=== PATIENT | male | born 1955 | race Caucasian/White ===

== ENCOUNTER 2024-06-18 04:30 | Inpatient (IN) | payer OTHER ==
--- OUTSIDE RECORDS SUMMARY | 2024-06-18 04:34 | XMS REPORT | Continuity of Care Document ---
Author Name Unknown Address [address] [facility] [address] [place] [address] [facility] thconnect Address [address] 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 Role Phone SALINA ROBBINS Primary Care Physician Unavailab INGRIS [place] Attending Clinician Unavailable EDDI ZAMUDIO Attending Clinician Unavailable EDDI ZAMUDIO Attending Clinician Unavailable Doctor Unassigned, [place] Attending Clinician U harshalsyed Robbins [place] Attending Clinician [phone] Ingris Murray MD Attending Clinician [phone] Eddi Zamudio PA-C Attending Clinician [phone] LLUVIA GUTIÉRREZ Attending Clinician LLUVIA Chris Attending Clinician Unavailstephy May RN, Mike Sung Attending Clinician Unavail able ESAU LEIVA Attending Clinician Unavailable Janna CEDENO, Tata Attending Clinician [phone] Ingris Murray MD Attending Clinician [phone] NIGRIS MURRAY Admitting Clinician Unavailable ESAU LEIVA Admitting Clinician Unavailable Payers Payer Name Policy Type Policy Number Effective Date Expirati on Date Source [facility]/[employer] MEDICARE ADVANTAGE [id number] 2023 00:00:00 Problems Condition Name Condition Details Condition Category Status Onset Date Resolution Date Last Treatment Date Treating Clinician Comments Source Preoperati ve cardiovasc ular examinatio n Preoperati ve cardiovasc ular examinatio n Disease Active 8-13 00:00: 00 [facility] Appendicit is Appendicit is Disease Active 5-16 00:00: 00 [facility] Atheroscle 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[place]nee heart, unspecifie d whether angina present Atheroscle 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 heart, unspecifie d whether angina present Disease Active 12-29 00:00: 00 [facility] Presence of drug coated stent in LAD coronary artery Presence of drug coated stent in LAD coronary artery Disease Active 12-29 00:00: 00 [facility] Primary hypertensi on Primary hypertensi on Disease Active 12-29 00:00: 00 [facility] Hypotensio n due to drugs Hypotensio n due to drugs Disease Active 12-29 00:00: 00 [facility] Mixed hyperlipid emia Mixed hyperlipid emia Disease Active 12-29 00:00: 00 [facility] Allergies, Adverse Reactions, Alerts Allergy Name Allergy Type Status Severity Reaction(s) Onset Date Inactive Date Treating Clinician Comments Source Dobutami ne Drug Intolera nce Active Other - See comments 12-29 00:00: 00 States during dobutamin e stress test medicatio n caused terrible headache. Requested to be listed as an intoleran ce, not true allergy [facility] DOBUTAMI NE DRUG INGREDI Active Med Other-Cmnt 12-29 00:00: 00 [facility] NO KNOWN ALLERGIE S Drug Class Active [facility] Social History Social Habit Start Date Stop Date Quantity Comments Source History of tobacco use Passive smoker [facility] of Social function 2024-05-14 00:00:00 2024-05-14 00:00:00 [facility] Tobacco use and exposure 2023-12-30 00:00:00 2023-12-30 00:00:00 Smokeless tobacco non-user [facility] Sex assigned at 1955 00:00:00 1955 00:00:00 [facility] Smoking Status Start Date Stop Date Source Never smoked tobacco [facility] Medications Ordered Medication Name Filled Medication Name Start Date Stop Date Current Medication? Ordering Clinician Indication Dosage Frequency Signature (SIG) Comments Components Source diclofenac 75 mg EC tablet 05-14 00:00: 00 Yes [id number] 75mg Take 1 tablet by mouth in the morning and 1 tablet in the evening. Take with meals. [facility] empaglifloz in 10 mg tablet 05-07 00:00: 00 08-06 05:59 :00 Yes 10mg Take 1 tablet by mouth. [facility] metFORMIN 1,000 mg tablet 04-30 00:00: 00 10-28 05:59 :00 Yes 1000mg Take 1 tablet by mouth. [facility] Magnesium 250 mg Tab 02-17 19:48: 31 Yes 800mg Take 800 mg by mouth in the morning. [facility] RYBELSUS 7 mg Tab 02-17 19:48: 31 Yes 1{tbl} Take 1 tablet by mouth in the morning. [facility] aspirin 81 mg Cap 02-17 19:48: 31 Yes 81mg Take 81 mg by mouth in the morning. [facility] acetaminoph en 500 mg tablet 02-17 19:48: 31 Yes 500mg Take 1 tablet by mouth every 8 (eight) hours as needed for Pain (arthritis ). [facility] ferrous sulfate (IRON) 325 mg (65 mg iron) tablet 02-17 19:48: 31 Yes 325mg Take 1 tablet by mouth in the morning. [facility] Multivitami ns-Minerals -Lutein (MULTIVITAM IN 50 PLUS) Tab 02-17 19:48: 31 Yes 1{tbl} Take 1 tablet by mouth in the morning and 1 tablet in the evening. [facility] NAPROXEN ORAL 02-17 19:48: 31 Yes 220mg Take 220 mg by mouth as needed for Pain (scale 4-6) (used for arthritis, foot pain, neck pain, leg cramps). [facility] terbinafine HCL 250 mg tablet 02-17 19:48: 31 05-18 00:00 :00 No 250mg Take 1 tablet by mouth in the morning. [facility] amoxicillin -clavulanat e 875-125 mg per tablet 02-17 00:00: 00 02-26 04:59 :00 No [id number] 1{tbl} Take 1 tablet by mouth every 12 (twelve) hours for 8 days. [facility] pantoprazol e (PROTONIX) EC tablet 40 mg 02-16 14:00: 00 Yes 40mg 40 mg, Oral, DAILY, First dose on Tue02/17/24 at 0900, Until Discontinu ed, Routine, Indication for use: None of the above [facility] aspirin chewable tablet 81 mg 02-16 14:00: 00 Yes 81mg 81 mg, Oral, DAILY, First dose on Tue02/17/24 at 0900, Until Discontinu ed [facility] amoxicillin -clavulanat e (AUGMENTIN) 875-125 mg per tablet 1 tablet 02-16 13:00: 00 02-26 12:59 :00 No 1{tbl} 1 tablet, Oral, Q12H, 20 doses, First dose on Tue02/17/24 at 0800, Last dose on Tue02/26/24 at 2000, Routine, Reason for Anti-Infec tive: Documented Infection, Documented Infection Site: Abdominal, Duration of Therapy: 10 days [facility] lactated ringers IV infusion 1,000 mL 02-16 13:00: 00 02-16 15:19 :43 No 1000mL at 42 mL/hr, 1,000 mL, IV Infusion, CONTINUOUS , Starting on Tue02/17/24 at 0800, Until Tue02/17/24 at 1019, Routine [facility] atorvastati n (LIPITOR) tablet 80 mg 02-16 02:00: 00 Yes 80mg 80 mg, Oral, QHS, First dose on Tue02/16/24 at 2100, Until Discontinu ed, Routine [facility] budesonide- formoteroL (SYMBICORT) 160-4.5 mcg/actuati on inhaler 2 Puff 02-16 01:00: 00 Yes 2{puff} 2 Puff, Inhalation , BID, First dose on Tue02/16/24 at 2000, Until Discontinu ed, Routine [facility] enoxaparin (LOVENOX) injection 40 mg 02-15 22:00: 00 Yes 40mg 40 mg, Subcutaneo us, DAILY, First dose on Tue02/16/24 at 1700, Until Discontinu ed, Routine [facility] carvediloL (COREG) tablet 3.125 mg 02-15 22:00: 00 Yes 3.125mg 3.125 mg, Oral, BID MEALS, First dose on Tue02/16/24 at 1700, Until Discontinu ed, Routine [facility] iopamidol (ISOVUE 370-500 mL) injection 100 mL 02-15 21:30: 00 02-15 21:27 :00 No [id number] 100mL 100 mL, Intravenou s, ONCE, 1 dose, On Tue02/16/24 at 1630, Routine [facility] acetaminoph en (TYLENOL) tablet 1,000 mg 02-15 19:00: 00 Yes 1000mg 1,000 mg, Oral, Q8H, First dose on Tue02/16/24 at 1400, Until Discontinu ed, [facility]ers [facility] 1,000 mL 02-15 17:15: 00 02-16 12:45 :25 No 1000mL at 100 mL/hr, 1,000 mL, IV Infusion, CONTINUOUS , Starting on Tue02/16/24 at 1215, Until Tue02/17/24 at 0745, Routine [facility] Sliding Scale Insulin - Lispro (HumaLOG) 02-15 17:00: 00 Yes Subcutaneo us, TID MEALS+HS, First dose on Tue02/16/24 at 1200, Until Discontinu ed, Routine [facility] glucagon (GLUCAGEN DIAGNOSTIC KIT) injection 1 mg 02-15 16:05: 01 Yes 1mg 1 mg, Intramuscu lar, PRN, Starting on Tue02/16/24 at 1105, Until Discontinu ed, POLI, Blood Glucose < or = 70 mg/dL and patient is NPO, unable to swallow or has mental changes. [facility] dextrose 50 % in water (D50W) injection 25 mL 02-15 16:05: 01 Yes 25mL 25 mL, Slow IV Push, PRN, Starting on Tue02/16/24 at 1105, Until Discontinu ed, POLI, Blood Glucose < or = 70 mg/dL and patient is NPO, unable to swallow or has mental status changes. [facility] morpHINE (2 mg/mL) injection 2 mg 02-15 15:29: 11 Yes 2mg [facility] traMADoL (ULTRAM) tablet 50 mg 02-15 15:28: 59 Yes 50mg [facility] ondansetron (ZOFRAN (PF)) injection 4 mg 02-15 15:28: 23 Yes 4mg [facility] albuterol (PROVENTIL) 2.5 mg /3 mL (0.083 %) nebulizer solution 2.5 mg 02-15 15:25: 29 Yes 2.5mg [facility] clopidogreL 75 mg tablet 12-29 11:34: 17 12-29 00:00 :00 No 75mg Take 1 tablet by mouth in the morning. [facility] ferrous sulfate (IRON) 325 mg (65 mg iron) tablet 12-29 10:49: 15 Yes 325mg Take 1 tablet by mouth in the morning. [facility] Multivitami ns-Minerals -Lutein (MULTIVITAM IN 50 PLUS) Tab 12-29 10:49: 15 Yes 1{tbl} Take 1 tablet by mouth in the morning and 1 tablet in the evening. [facility] cholecalcif gabby, vitamin D3, (D3-5000 ORAL) 12-29 10:49: 15 Yes 5000[iU ] Take 5,000 Int'l Units by mouth in the morning. [facility] NAPROXEN ORAL 12-29 10:49: 15 Yes 220mg Take 220 mg by mouth as needed for Pain (scale 4-6) (used for arthritis, foot pain, neck pain, leg cramps). [facility] Magnesium 250 mg Tab 12-29 10:49: 15 Yes 800mg Take 800 mg by mouth in the morning. [facility] RYBELSUS 7 mg Tab 12-29 10:49: 15 Yes 1{tbl} Take 1 tablet by mouth in the morning. [facility] terbinafine HCL 250 mg tablet 12-29 10:49: 15 Yes 250mg Take 1 tablet by mouth in the morning. [facility] aspirin 81 mg Cap 12-29 10:49: 15 Yes 81mg Take 81 mg by mouth in the morning. [facility] acetaminoph en 500 mg tablet 12-29 10:49: 15 Yes 500mg Take 1 tablet by mouth every 8 (eight) hours as needed for Pain (arthritis ). [facility] carvediloL 3.125 mg tablet 12-29 00:00: 00 12-30 04:59 :00 No [id number] 3.125mg Take 1 tablet by mouth in the morning and 1 tablet in the evening. Take with meals. [facility] predniSONE 10 mg tablet 12-28 00:00: 00 Yes 10mg Take 1 tablet by mouth as needed for Other (used for sob exacerbati on). [facility] SYMBICORT 160-4.5 mcg/actuati on inhaler 12-28 00:00: 00 Yes 2{puff} Inhale 2 Puffs in the morning and 2 Puffs in the evening. [facility] atorvastati n 80 mg tablet 12-26 00:00: 00 06-25 04:59 :00 No 80mg Take 1 tablet by mouth at bedtime. [facility] ketoconazol e 2 % cream 12-14 00:00: 00 Yes Apply to area(s) daily. [facility] ketoconazol e 2 % shampoo 12-14 00:00: 00 02-13 04:59 :00 No Apply to area(s). [facility] ezetimibe 10 mg tablet 11-29 00:00: 00 01-28 04:59 :00 No 10mg Take 1 tablet by mouth in the morning. [facility] albuterol 2.5 mg /3 mL (0.083 %) nebulizer solution 2022-10 00:00: 00 Yes 2.5mg Inhale 3 mL every 6 (six) hours as needed for Shortness of Breath or Wheezing. [facility] metFORMIN 1,000 mg tablet 2022-10 00:00: 00 02-05 04:59 :00 No 1000mg Take 1 tablet by mouth in the morning and 1 tablet in the evening. Take with meals. [facility] carvediloL 12.5 mg tablet 2022-10 00:00: 00 12-29 00:00 :00 No 12.5mg Take 1 tablet by mouth in the morning and 1 tablet in the evening. Take with meals. [facility] isosorbide mononitrate 30 mg 24 hr tablet 01-31 00:00: 00 Yes 30mg Take 1 tablet by mouth in the morning. [facility] Vital Signs Vital Name Observation Time Observation Value Comments Patricia champagne Systolic blood pressure 2024-05-15 15:03:00 106 mm[Hg] [facility] Diastolic blood pressure 2024-05-15 15:03:00 58 mm[Hg] [facility] Heart rate 2024-05-15 15:03:00 74 /min [facility] Respiratory rate 2024-05-15 15:03:00 16 /min [facility] Body height 2024-05-15 15:03:00 175.3 cm [facility] Body weight 2024-05-15 15:03:00 85.475 kg [facility] BMI 2024-05-15 15:03:00 27.83 kg/m2 [facility] Oxygen saturation in Arterial blood by Pulse oximetry 2024-05-15 15:03:00 94 /min [facility] Body height 2024-05-14 13:35:00 175.3 cm [facility] Body weight 2024-05-14 13:35:00 86.274 kg [facility] BMI 2024-05-14 13:35:00 28.09 kg/m2 [facility] Systolic blood pressure 2024-02-18 20:55:00 132 mm[Hg] [facility] Diastolic blood pressure 2024-02-18 20:55:00 72 mm[Hg] [facility] Heart rate 2024-02-18 20:55:00 63 /min [facility] Body temperature 2024-02-18 20:55:00 36.67 Nyla [facility] Respiratory rate 2024-02-18 20:55:00 18 /min [facility] Oxygen saturation in Arterial blood by Pulse oximetry 2024-02-18 20:55:00 96 /min [facility] Body weight 2024-02-16 12:00:00 92 kg [facility] BMI 2024-02-16 12:00:00 29.95 kg/m2 [facility] Systolic blood pressure 2023-12-30 15:51:00 81 mm[Hg] [facility] Diastolic blood pressure 2023-12-30 15:51:00 48 mm[Hg] [facility] Heart rate 2023-12-30 15:51:00 64 /min [facility] Body height 2023-12-30 15:51:00 175.3 cm stated [facility] Body weight 2023-12-30 15:51:00 91.808 kg [facility] BMI 2023-12-30 15:51:00 29.89 kg/m2 [facility] Oxygen saturation in Arterial blood by Pulse oximetry 2023-12-30 15:51:00 96 /min [facility] Procedures Procedure Date / Time Performed Performing Clinician Source TRANSTHORACIC ECHO (TTE) COMPLETE 2024-05-17 15:30:00 Ingris Murray [facility] POCT GLUCOSE (AUTOMATED) 2024-02-18 20:57:00 Fr Abbie [facility] POCT GLUCOSE (AUTOMATED) 2024-02-18 13:37:00 Fr Abbie [facility] BASIC METABOLIC PANEL (NA, K, CL, CO2, GLUCOSE, BUN, CREATININE, CA) 2024-02-18 10:35:00 Aubrey Browning [facility] CBC WITH DIFF 2024-02-18 10:35:00 Mari Browning [facility] POCT GLUCOSE (AUTOMATED) 2024-02-18 01:28:00 Fr Abbie [facility] POCT GLUCOSE (AUTOMATED) 2024-02-17 23:15:00 Fr Abbie [facility] POCT GLUCOSE (AUTOMATED) 2024-02-17 19:14:00 Fr Abbie [facility] PHOSPHORUS 2024-02-17 09:39:00 Mari Browning [facility] MAGNESIUM 2024-02-17 09:39:00 Mari Browning [facility] BASIC METABOLIC PANEL (NA, K, CL, CO2, GLUCOSE, BUN, CREATININE, CA) 2024-02-17 09:39:00 Aubrey Browning [facility] CBC WITH DIFF 2024-02-17 09:39:00 Mari Browning [facility] POCT GLUCOSE (AUTOMATED) 2024-02-17 01:46:00 Pineda Saldivar [facility] POCT GLUCOSE (AUTOMATED) 2024-02-16 21:44:00 Pineda Saldivar [facility] CT ABDOMEN PELVIS W CONTRAST 2024-02-16 21:30:00 Crystal [facility] PHOSPHORUS 2024-02-16 17:22:[facility]24-02-16 17:22:00 [facility] HEPATIC FUNCTION PANEL (17832) (ALB,T.PRO,BILI T,BU/BC,ALT,AST,ALK PHOS) 2024-02-16 17:22:[facility] (NA, K, CL, CO2, GLUCOSE, BUN, CREATININE, CA) 2024-02-16 17:22:00 [facility] CBC WITH DIFF 2024-02-16 17:22:00 Crystal [facility] PROTHROMBIN TIME / INR 2024-02-16 17:22:00 [facility] ACTIVATED PARTIAL THRMPLAS MARCO ANTONIO 2024-02-16 17:22:00 Jagdish [facility] FIBRINOGEN 2024-02-16 17:22:00 Jagdish [facility] HEPATITIS B SURFACE ANTIBODY 2024-02-16 17:22:00 [facility] HEPATITIS B SURFACE ANTIGEN 2024-02-16 17:22:00 [facility]TIBODY 2024-02-16 17:22:00 [facility] HEPATITIS B CORE ANTIBODY IGM 2024-02-16 17:22:00 [facility] Encounters Start Date/Time End Date/Time Encounter Type Admission Type Attending [facility] Care Facility Care Department Encounter ID Source 2024-06-14 08:00:00 2024-06-14 08:00:00 Outpatient EDDI GUTIERRES SELENA [facility] [id number] [facility] 2024-05-08 00:00:00 2024-06-09 18:20:42 Patient Secure Msg Doctor Unassigned, [place] Doctor Unassigned, [place] [facility] 1.2.840.114 350.1.13.10 4.2.7.2.686 [id number] [facility] 2024-05-10 00:00:00 2024-05-30 10:57:28 Letter (Out) Salina Robbins [facility] 1.2.840.114 350.1.13.10 4.2.7.2.686 [id number] [facility] 2024-05-18 00:00:00 2024-05-18 09:53:52 Telephone Trevor [facility]ESSIO NAL BUILDING 1.2.840.114 350.1.13.10 4.2.7.2.686 [id number] [facility] 2024-05-17 09:51:06 2024-05-17 23:59:00 Outpatient R TREVOR [facility] [id number] [facility] 2024-05-17 09:51:06 2024-05-17 23:59:00 [facility] 1.2.840.114 350.1.13.10 4.2.7.2.686 [id number] [facility] 2024-05-15 09:30:00 2024-05-15 11:01:25 Outpatient R TREVOR [facility] [id number] [facility] 2024-05-15 09:30:00 2024-05-15 11:01:25 Office Visit Trevor [facility] BUILDING 1.2.840.114 350.1.13.10 4.2.7.2.686 [id number] [facility] 2024-05-14 08:30:00 2024-05-14 10:31:33 Outpatient R EDDI ZAMUDIO [facility]LE[facility] [id number] [facility] 2024-05-14 08:30:00 2024-05-14 10:31:33 Office Visit Eddi Zamudio [facility] 1..840.114 350.1.13.10 4.2.7.2.686 [id number] [facility] 2024-04-16 15:30:00 2024-04-16 15:30:00 Outpatient LLUVIA COLEMAN CRAIG [facility] [id number] [facility] 2024-03-30 08:00:00 2024-03-30 08:00:00 [facility] [id number] [facility] 2024-03-02 09:00:00 2024-03-02 09:00:00 Outpatient Dami [facility] [id number] [facility] 2024-02-20 00:00:00 2024-02-21 11:39:56 Transition of Care Mike May 1..840.114 350.1.13.10 4.2.7.2.686 [id number] [facility] 2024-02-16 07:13:00 2024-02-18 18:45:00 Outpatient ESAU BAXTER VTSELINA PURDY [id number] [facility] 2024-02-16 07:13:00 2024-02-18 18:45:00 Hospital Encounter Tata Saldivar [facility] 1..840.114 350.1.13.10 4.2.7.2.686 [id number] [facility] 2024-01-19 08:00:00 2024-01-19 08:00:00 Outpatient R MURRAYINGRIS [facility] [id number] [facility] 2024-01-03 00:00:00 2024-01-03 00:00:00 Telephone Ingris Murray [facility] 1.2.840.114 350.1.13.10 4.2.7.2.686 [id number] [facility] 2023-12-30 11:00:00 2023-12-30 11:39:34 Office Visit Ingris Murray [facility] 1.2.840.114 350.1.13.10 4.2.7.2.686 [id number] [facility] 2023-12-30 11:00:00 2023-12-30 11:39:34 [facility] [id number] [facility] Results Test Description Test Time Test Comments Results Result Co mments Source [facility] GLUCOSE (AUTOMATED)2024-02-18 21:04:20* Test Item Value Reference Range Interpretation Comme [facility] POCT GLU (test code = 8108546200) 230 mg/dL 70-110 H Lab Interpretation (test cod e = 80330-0) Abnormal [facility] GLUCOSE (AUTOMATED)2024-02-18 13:38:14* Test Item Value Reference Range Interpretation Comme [facility] POCT GLU (test code = 5205805362) 125 mg/dL 70-110 H Lab Interpretation (test cod e = 79873-6) Abnormal [facility] [id number] 11:27:57* Test Item Value Reference Range Interpretation Comme nts WBC (test code = 6690-2) 7.11 4.20-10.70 RBC (test code = 789-8) 4.72 4.26-5.52 HGB (test code = 718-7) 14.9 g/dL 12.2-16.4 HCT (test code = 4544-3) 41.1 % 38.4-49.3 MCV (test code = 787-2) 87.1 fL 81.7-95.6 MCH (test code = 785-6) 31.6 pg 26.1-32.7 MCHC (test code = 786-4) 36.3 g/dL 31.2-35.0 H RDW-SD (test code = 04430-8) 42.6 fL 38.5-51.6 RDW-CV (test code = 788-0) 13.5 % 12.1-15.4 PLT (test code = 777-3) 123 150-328 L MPV (test code = 46129-1) 11.1 fL 9.8-13.0 IPF % (test code = 0637323201) 4.6 % 1.2-10.7 Platelet count measured by fluorescence method. NRBC/100 WBC (test code = 7935279220) 0.0 0.0-10.0 NRBC x10^3 (test code = 7518477844) See_Comment [Automated Histogena ge] The system which generated this result transmitted reference range: 10*3/?L. The reference range was not used to interpret this result as normal/abnormal. GRAN MAT (NEUT) % (test code = 770-8) 63.9 % IMM GRAN % (test code = 7077607658) 0.30 % LYMPH % (test code = 736-9) 19.8 % MONO % (test code = 5905-5) 10.7 % EOS % (test code = 713-8) 4.6 % BASO % (test code = 706-2) 0.7 % GRAN MAT x10^3(ANC) (test code = 5007917173) 4.54 10*3/uL 1.99-6.95 IMM GRAN x10^3 (test code = 5579420901) 0.00-0.06 LYMPH x10^3 (test code = 731-0) 1.41 10*3/uL 1.09-3.23 MONO x10^3 (test code = 742-7) 0.76 10*3/uL 0.36-1.02 EOS x10^3 (test code = 711-2) 0.33 10*3/uL 0.06-0.53 BASO x10^3 (test code = 704-7) 0.05 10*3/uL 0.01-0.09 Lab Interpretation (test code = 76674-1) Abnormal [facility] Metabolic Panel (NA, K, CL, CO2, GLUCOSE, BUN, CREATININE, CA)2024-02-18 11:24:54* Test Item Value Reference Range Interpretation Comme nts NA (test code = 5518526314) 137 mmol/L 135-145 K (test code = 2827307968) 4.3 mmol/L 3.5-5.0 Slight hemolysis CL (test code = 3243120179) 107 mmol/L 98-108 CO2 TOTAL (test code = 6752344095) 22 mmol/L 23-31 L AGAP (test code = 7814244828) 8 2-16 BUN (test code = 5582503260) 10 mg/dL 7-23 Slight hemolysis GLUCOSE (test code = 6585155359) 128 mg/dL 70-110 H CREATININE (test code = 2160-0) 0.58 mg/dL 0.60-1.25 L CALCIUM (test code = 0890909113) 9.5 mg/dL 8.6-10.6 eGFR (test code = 35016-5) 107.6 mL/min/1.73m2 CKD-EPI eGFR (2020). Assuming creatinine has been stable day-to-day for at least three months, the eGFR indicates Category G1 (>= 90 mL/min/1.73 m2) Lab Interpretation (test code = 61110-7) Abnormal [facility] GLUCOSE (AUTOMATED)2024-02-18 01:31:02* Test Item Value Reference Range Interpretation Comme nts POCT GLU (test code = 3531872933) 222 mg/dL 70-110 H Lab Interpretation (test cod e = 89949-9) Abnormal [facility] GLUCOSE (AUTOMATED)2024-02-17 23:16:43* Test Item Value Reference Range Interpretation Comme nts POCT GLU (test code = 3291566389) 224 mg/dL 70-110 H Lab Interpretation (test cod e = 93842-7) Abnormal [facility] GLUCOSE (AUTOMATED)2024-02-17 19:15:59* Test Item Value Reference Range Interpretation Comme nts POCT GLU (test code = 8689918040) 92 mg/dL 70-110 Lab Interpretation (test cod e = 36376-7) Normal [facility] with [id number] 10:46:03* Test Item Value Reference Range Interpretation Comme nts WBC (test code = 6690-2) 6.94 4.20-10.70 RBC (test code = 789-8) 4.58 4.26-5.52 HGB (test code = 718-7) 13.9 g/dL 12.2-16.4 HCT (test code = 4544-3) 41.0 % 38.4-49.3 MCV (test code = 787-2) 89.5 fL 81.7-95.6 MCH (test code = 785-6) 30.3 pg 26.1-32.7 MCHC (test code = 786-4) 33.9 g/dL 31.2-35.0 RDW-SD (test code = 44192-6) 44.7 fL 38.5-51.6 RDW-CV (test code = 788-0) 13.7 % 12.1-15.4 PLT (test code = 777-3) 106 150-328 L MPV (test code = 79147-2) 10.5 fL 9.8-13.0 IPF % (test code = 8738484760) 2.8 % 1.2-10.7 Platelet count measured by fluorescence method. NRBC/100 WBC (test code = 0986385324) 0.0 0.0-10.0 NRBC x10^3 (test code = 2905418907) See_Comment [Automated Histogena ge] The system which generated this result transmitted reference range: 10*3/?L. The reference range was not used to interpret this result as normal/abnormal. GRAN MAT (NEUT) % (test code = 770-8) 58.2 % IMM GRAN % (test code = 1324004983) 0.30 % LYMPH % (test code = 736-9) 24.1 % MONO % (test code = 5905-5) 11.5 % EOS % (test code = 713-8) 5.0 % BASO % (test code = 706-2) 0.9 % GRAN MAT x10^3(ANC) (test code = 1372437804) 4.04 10*3/uL 1.99-6.95 IMM GRAN x10^3 (test code = 3016228762) 0.00-0.06 LYMPH x10^3 (test code = 731-0) 1.67 10*3/uL 1.09-3.23 MONO x10^3 (test code = 742-7) 0.80 10*3/uL 0.36-1.02 EOS x10^3 (test code = 711-2) 0.35 10*3/uL 0.06-0.53 BASO x10^3 (test code = 704-7) 0.06 10*3/uL 0.01-0.09 Lab Interpretation (test code = 82358-7) [facility] (NA, K, CL, CO2, GLUCOSE, BUN, CREATININE, CA)2024-02-17 10:36:30* Test Item Value Reference Range Interpretation Comme nts NA (test code = 4428646430) 136 mmol/L 135-145 K (test code = 8219023462) 3.8 mmol/L 3.5-5.0 CL (test code = 4830887612) 108 mmol/L 98-108 CO2 TOTAL (test code = 0801135144) 25 mmol/L 23-31 AGAP (test code = 5159338780) 3 2-16 BUN (test code = 5572269218) 12 mg/dL 7-23 GLUCOSE (test code = 0792125685) 98 mg/dL 70-110 CREATININE (test code = 2160-0) 0.64 mg/dL 0.60-1.25 CALCIUM (test code = 6470761330) 9.2 mg/dL 8.6-10.6 eGFR (test code = 81650-4) 104.4 mL/min/1.73m2 CKD-EPI eGFR (20 21). Assuming creatinine has been stable day-to-day for at least three months, the eGFR indicates Category G1 (>= 90 mL/min/1.73 m2) [facility] 10:36:30* Test Item Value Reference Range Interpretation Comme nts MAGNESIUM (test code = 9567048704) 2.1 mg/dL 1.7-2.4 Lab Interpretation (test cod e = 30015-7) Normal [facility]24-[facility] 10:36:30* Test Item Value Reference Range Interpretation Comme nts PHOSPHORUS (test code = 6747710454) 3.1 mg/dL 2.5-5.0 Lab Interpretation (test cod e = 34769-3) Normal [facility] ABDOMEN PELVIS W [id number] 03:16:56Ordering physician: ESAU LEIVA Indication: Acute generalized abdominal pain COMPARISON: None TECHNIQUE: Axial images of the abdomen and pelvis are performed followingadministration of intravenous contrast material. Images were reformatted inthe coronal and sagittal plane. CT scan was performed according to ALARA(as low as reasonably achievable) policy. FINDINGS: There is peripheral honeycombing and traction bronchiectasis inthe lung bases. The heart is enlarged, with prominent coronaryarteriosclerosis. There is irregularity of the liver contour. The spleen isenlarged, at 17 cm in long axis. 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 The gallbladder, adrenalglands and pancreas are within normal limits. The kidneys are normal inappearance bilaterally without hydronephrosis. No abdominal aortic aneurysmor dissection is appreciated. There is no free fluid in the pelvis. There is no bowel obstruction,widespread diverticulosis or acute diverticulitis. The appendix isdistended, measuring up to 13 mm in diameter. There are mild inflammatorychanges in the adjacent fat (series 301, image 77-84). No appendicealperforation or periappendiceal abscess is appreciated. Bone windows throughthe abdomen and pelvis demonstrate no osseous destructive lesion. [facility] GLUCOSE (AUTOMATED)2024-02-17 01:47:51* Test Item Value Reference Range Interpretation Comme [facility] POCT GLU (test code = 1042319948) 105 mg/dL 70-110 Notified Provide r Lab Interpretation (test code = 22345-7) Normal [facility] GLUCOSE (AUTOMATED)2024-02-16 21:45:46* Test Item Value Reference Range Interpretation Comme [facility] POCT GLU (test code = 8802873484) 124 mg/dL 70-110 H Lab Interpretation (test cod e = 58836-3) Abnormal [facility] Consult Notes Date/Time Note Provider Source 2024-02-16 12:00:46 Associated Order(s): CONSULT CARDIOLOGY Cardiology Consult Note Date of Service: 02/16/2024 Requesting Service: General surgery Chief Complaint: Acute appendicitis Reason for admission: Acute appendicitis Reason for consult: 68 yo M with cirrhosis, CAD s/p PCI and stents in 2013, and IPF. Pt with acute appendicitis. Please eval perioperative cardiac risk and for preop cardiac optimization History of Present Illness: Rod Singletary is a 68 year old male with PMHx of CAD s/p PCIx2 LAD 2016/2017 (self reported), HTN|HLD, NIDDM, lung fibrosis who presents with abdominal pain, found to have appendicitis. Cardiology consult for pre-op. Patient reports he is doing well from a cardiac standpoint. He is compliant with his medications and is currently only on aspirin for antiplatelet as advised by his qa intern. He was recently seen by his qa intern, Dr. Murray in December 2023 and was doing well then. Patient reports he is active, climbs stairs, etc without CP. Denies CP, palpitations, lightheadedness, swelling. ROS: 12 points ROS were obtained and negative except mentioned in HPI. No past medical history on file. No past surgical history on file. No family history on file. Social History Socioeconomic History Marital status: Single Tobacco Use Smoking status: Never Passive exposure: Current Smokeless tobacco: Never Social Determinants of Health Financial Resource Strain: Low Risk (02/16/2024) Overall Financial Resource Strain (CARDIA) Difficulty of Paying Living Expenses: Not hard at all Food Insecurity: No Food Insecurity (02/16/2024) Hunger Vital Sign Worried About Running Out of Food in the Last Year: Never true Ran Out of Food in the Last Year: Never true Transportation Needs: No Transportation Needs (02/16/2024) PRAPARE - Transportation Lack of Transportation (Medical): No Lack of Transportation (Non-Medical): No Physical Activity: Inactive (02/16/2024) Exercise Vital Sign Days of Exercise per Week: 0 days Minutes of Exercise per Session: 0 min Social Connections: Unknown (02/16/2024) Social Connection and Isolation Panel [NHANES] Frequency of Communication with Friends and Family: More than three times a week Housing Stability: Low Risk (02/16/2024) Housing Stability Vital Sign Unable to Pay for Housing in the Last Year: No Number of Places Lived in the Last Year: 1 Unstable Housing in the Last Year: No Allergies Allergen Reactions Dobutamine Other - See comments States during dobutamine stress test medication caused terrible headache. Requested to be listed as an intolerance, not true allergy Prior to Admission medications Medication Sig Start Date End Date Taking? Authorizing Provider acetaminophen 500 mg tablet Take 1 tablet by mouth every 8 (eight) hours as needed for Pain (arthritis). Doctor Unassigned, [place] albuterol 2.5 mg /3 mL (0.083 %) nebulizer solution Inhale 3 mL every 6 (six) hours as needed for Shortness of Breath or Wheezing. 09/16/23 Antonino Hatfield aspirin 81 mg Cap Take 81 mg by mouth in the morning. Doctor Unassigned, [place] atorvastatin 80 mg tablet Take 1 tablet by mouth at bedtime. 12/27/23 06/24/24 Doctor Unassigned, [place] carvediloL 3.125 mg tablet Take 1 tablet by mouth in the morning and 1 tablet in the evening. Take with meals. 12/30/23 12/29/24 Ingris Murray MD cholecalciferol, vitamin D3, (D3-5000 ORAL) Take 5,000 Int'l Units by mouth in the morning. Doctor Unassigned, [place] ferrous sulfate (IRON) 325 mg (65 mg iron) tablet Take 1 tablet by mouth in the morning. Doctor Unassigned, [place] isosorbide mononitrate 30 mg 24 hr tablet Take 1 tablet by mouth in the morning. 01/31/23 Doctor Unassigned, [place] ketoconazole 2 % cream Apply to area(s) daily. 12/15/23 Doctor Unassigned, [place] Magnesium 250 mg Tab Take 800 mg by mouth in the morning. Doctor Unassigned, [place] Sjuqgkjpsljud-[place] (MULTIVITAMIN 50 PLUS) Tab Take 1 tablet by mouth in the morning and 1 tablet in the evening. Doctor Unassigned, [place] NAPROXEN ORAL Take 220 mg by mouth as needed for Pain (scale 4-6) (used for arthritis, foot pain, neck pain, leg cramps). Doctor Unassigned, [place] predniSONE 10 mg tablet Take 1 tablet by mouth as needed for Other (used for sob exacerbation). 12/29/23 Antonino Hatfield RYBELSUS 7 mg Tab Take 1 tablet by mouth in the morning. Salina Robbins SYMBICORT 160-4.5 mcg/actuation inhaler Inhale 2 Puffs in the morning and 2 Puffs in the evening. 12/29/23 Doctor Unassigned, [place] terbinafine HCL 250 mg tablet Take 1 tablet by mouth in the morning. Doctor Unassigned, [place] Current Facility-Administered Medications: acetaminophen (TYLENOL) tablet 1,000 mg, 1,000 mg, Oral, Q8H, Yandel Rojas MD, 1,000 mg at 02/16/24 1456 albuterol (PROVENTIL) 2.5 mg /3 mL (0.083 %) nebulizer solution 2.5 mg, 2.5 mg, Inhalation, Q6HPRN, Yandel Rojas MD [START ON 02/17/2024] aspirin chewable tablet 81 mg, 81 mg, Oral, DAILY, Yandel Rojas MD atorvastatin (LIPITOR) tablet 80 mg, 80 mg, Oral, QHS, Yandel Rojas MD budesonide-formoteroL (SYMBICORT) 160-4.5 mcg/actuation inhaler 2 Puff, 2 Puff, Inhalation, BID, Yandel Rojas MD carvediloL (COREG) tablet 3.125 mg, 3.125 mg, Oral, BID MEALS, Yandel Rojas MD dextrose 50 % in water (D50W) injection 25 mL, 25 mL, Slow IV Push, PRN, Rachel Dubon MD enoxaparin (LOVENOX) injection 40 mg, 40 mg, Subcutaneous, DAILY, Yandel Rojas MD glucagon (GLUCAGEN DIAGNOSTIC KIT) injection 1 mg, 1 mg, Intramuscular, PRN, Rachel Dubon MD lactated ringers IV infusion 1,000 mL, 1,000 mL, IV Infusion, CONTINUOUS, Rachel Dubon MD, Last Rate: 100 mL/hr at 02/16/24 1209, 1,000 mL at 02/16/24 1209 morpHINE (2 mg/mL) injection 2 mg, 2 mg, Slow IV Push, Q4HPRN, Yandel Rojas MD ondansetron (ZOFRAN (PF)) injection 4 mg, 4 mg, Slow IV Push, Q6HPRN, Yandel Rojas MD [START ON 02/17/2024] pantoprazole (PROTONIX) EC tablet 40 mg, 40 mg, Oral, DAILY, Yandel Rojas MD piperacillin-tazobactam (ZOSYN) 3.375 g in NaCl 0.9% (NS) 100 mL VIAL-MATE, 3.375 g, IV Piggyback, Q8H Crystal WALLER Samuel, MD Sliding Scale Insulin - Lispro (HumaLOG), , Subcutaneous, TID MEALS+HS, Rachel Dubon MD traMADoL (ULTRAM) tablet 50 mg, 50 mg, Oral, Q6HPRN, Yandel Rojas MD Physical Examination: Vitals: 02/16/24 1129 BP: 123/71 Pulse: 65 Resp: 18 Temp: 36.5 ?C (97.7 ?F) SpO2: 94% No intake or output data in the 24 hours ending 02/16/24 1502 General: alert and oriented x3, no apparent distress HEENT: pupils equal, round Neck: no JVD Lungs: no crackles Cardio: RRR, S1, S2 normal; no murmurs appreciated Abdomen: soft; non-tender; non-distended; normoactive bowel sounds : not examined Rectal: not examined Extremities: no edema, warm to touch Skin: no rashes Neuro: cranial nerves II through XII grossly intact Labs/Imaging/Pathology - reviewed EKG : 12/2023 Sinus bradycardia Assessment/Plan: Rod Singletary is a 68 year old male admitted with: Pre-op for acute appendicitis CAD s/p PCIx2 LAD 2016/2017 (self reported) HTN|HLD NIDDM lung fibrosis Patient with acute appendicitis, consult for pre-op. Patient denies any active cardiac issues such as CP, palpitations. He is active at baseline, >4 METS. Given this information, does not require any additional assessment or optimization. Recommendations: Intermediate risk, cardiac optimized, no additional testing needed Please continue beta jose and aspirin perioperatively Maintain K >4, Mag >2 Tele F/u outpatient as scheduled Rest of care per primary Thank you for your consult. Cardiology will sign off. Please call with any questions. Seen and discussed with faculty, Dr. Benoit. Shyanne Rivas MD General Cardiovascular Disease, PGY-4 Department of Internal Medicine Associated attestation - Ricardo Benoit MD - 02/16/2024 4:14 PM CDT I reviewed patient's chart, vitals, lab work, current medications and other diagnostic studies. I saw and examined the patient on 02/16/2024 and agree with the detailed note. I actively participated in the decision-making process. Ricardo Benoit MD [employer] Division of Cardiology IM-CARDIOVASCULAR DISEASE [facility] - Health History and Physical Notes Date/Time Note Provider Source 2024-02-16 09:08:05 GENERAL SURGERY History and Physical Date of Service: 02/16/2024 Chief Complaint: abdominal pain HPI Rod Singletary is a 68 year old w/ PMH 68 yo M with cirrhosis, CAD s/p PCI and stents in 2013, and IPF, and DM, with acute appendicitis. Pt denies any hx of cirrhosis or excessive alcohol intake. Appendicitis identified on imaging from OSH as well as cirrhosis noted on outside imaging with unknown etiology. He has not had prior abdominal surgery. CURRENT HOSPITAL MEDICATIONS No current facility-administered medications for this encounter. Review of Systems (-)=Negative,(+)=Positive Constitutional: negative HEENT: negative Cardio: negative Resp: negative GI: (+) abdominal pain : negative SARA: negative Neuro: negative Hem/Lymphatic: negative Allergic/Immunologic: negative HISTORIES No past medical history on file. No past surgical history on file. No family history on file. Social History Socioeconomic History Marital status: Single Tobacco Use Smoking status: Never Passive exposure: Current Smokeless tobacco: Never Social Determinants of Health Financial Resource Strain: Low Risk (02/16/2024) Overall Financial Resource Strain (CARDIA) Difficulty of Paying Living Expenses: Not hard at all Food Insecurity: No Food Insecurity (02/16/2024) Hunger Vital Sign Worried About Running Out of Food in the Last Year: Never true Ran Out of Food in the Last Year: Never true Transportation Needs: No Transportation Needs (02/16/2024) PRAPARE - Transportation Lack of Transportation (Medical): No Lack of Transportation (Non-Medical): No Physical Activity: Inactive (02/16/2024) Exercise Vital Sign Days of Exercise per Week: 0 days Minutes of Exercise per Session: 0 min Social Connections: Unknown (02/16/2024) Social Connection and Isolation Panel [NHANES] Frequency of Communication with Friends and Family: More than three times a week Housing Stability: Low Risk (02/16/2024) Housing Stability Vital Sign Unable to Pay for Housing in the Last Year: No Number of Places Lived in the Last Year: 1 Unstable Housing in the Last Year: No Physical Exam Vitals: There were no vitals filed for this visit. (-)=Negative,(+)=Positive General: alert and oriented x 4 (person, place, date/time, and situation); no apparent distress HEENT: normocephalic atraumatic, extraocular movements intact Respiratory: non labored breaths Cardio: regular rate and rhythm Abdomen: soft, TTP on RLQ Musculoskeletal: Moves all extremities well Skin: no rash Neurologic: no focal deficits Psychiatric: negative ASSESSMENT/PLAN: Rod Singletary is a 68 year old male who presents with acute appendicitis. Due to extensive cardiac hx will require cardiac work up prior to surgery. Additionally, need to consider medical management of appendicitis due to comorbidity of cirrhosis. NPO Resumed Home Meds Sliding scale insulin DVT prophylaxis on Lovenox ID: Zosyn CT abdomen and pelvis w/ Cardiology consulted Tevin Alonso MD Orthopaedic Surgery PGY-1 Associated attestation - Esau Leiva MD - 02/16/2024 3:55 PM CDT Attending I personally examined the patient on 02/16/24 and agree with the Resident note by Dr. Alonso as written. I actively participated in the decision-making process. Please see the note for additional details. The history and physical exam and medical decision making was directed by me. Briefly, 68 year old w/ PMH 68 yo M with cirrhosis, CAD s/p PCI and stents in 2013, and IPF, and DM, with acute appendicitis. PROBLEMS: Acute appendicitis complicated by cirrhosis, pulmonary fibrosis, CAD, DM Review and interpretation of tests New tests ordered Moderate (M) risk indicated by Other extenuating risks including possible need for surgery (minor)(M) History of/underlying No past medical history on file. PLAN: Repeat CT A/P as outside CD not available CBC, BMP, LFT, PT/PTT Outside CT suggests significant hepatic cirrhosis Exam benign CPT: 61657 Esau Leiva MD Trauma/Acute Care Surgery Faculty ORT-ORTHOPAEDIC SURGERY [facility] Notes Date/Time Note Provider Source 2024-05-18 09:43:12 Images from the original note were not included. Results and recommendations shared, verbalized understanding, transferred to PSS to schedule 6mth appt Ingris Murray MD P Cardiology Nurse Echo showed normal cardiac muscle and valvular function. The ascending aorta however is moderately dilated at 4.2 cm. Recommend follow up imaging (with CT chest angiogram) in 6 months. Orders are placed. Office follow up after 6 months. Kathleen Best RN [facility] 2024-05-15 09:30:00 Addended by: INGRIS KNOTT on: 05/18/2024 08:01 AM Modules accepted: Orders [facility] 2024-02-21 11:38:55 TRANSITIONAL CARE MANAGEMENT ASSESSMENT 02/21/2024 Rod Singletary [id number] Rod Singletary is a 68 year old /White male was admitted on 02/16/[address] He was discharged on 02/18/24 with discharge disposition of HR- Routine Discharge. Admitting Physician: Esau Leiva Discharge Diagnosis: PRIMARY DIAGNOSIS: appendicitis FINAL DIAGNOSIS: same No linked episodes TCM [id number] outreach documentation: CM made follow up call to patient post-discharge. No answer and call went to voicemail. CM left a discreet message with purpose of call and CM's call back information. Two attempts made to reach patient. Discharge Assessment Chart Assessed: 02/21/24 TCM Outreach Completed: 02/21/24 Future Appointments: Future Appointments Provider Department Dept Phone 03/02/2024 9:00 AM 2, [phone] 03/30/2024 8:00 AM Ingris Murray MD [facility] [phone] Mike May RN [facility] 2024-02-20 16:42:54 CM made follow up call to patient post-discharge. No answer and call went to voicemail. CM left a discreet message with purpose of call and CM's call back information. [facility] 2024-02-18 14:58:51 Problem: Pain Goal: Control of pain at or below patient's documented comfort goal Outcome: Adequate for discharge Goal: Reduction in pain sensation Outcome: Adequate for discharge Problem: Discharge Planning Goal: Adequate for discharge Outcome: Adequate for discharge Goal: Effective communication Outcome: Adequate for discharge DIE Krishnamurthy RN [facility] 2024-02-18 02:38:00 Problem: Pain Goal: Control of pain at or below patient's documented comfort goal Outcome: Progressing as expected Goal: Reduction in pain sensation Outcome: Progressing as expected Problem: Discharge Planning Goal: Adequate for discharge Outcome: Progressing as expected Goal: Effective communication Outcome: Progressing as expected T Jahaira Menard RN [facility] 2024-02-17 13:53:32 Problem: Pain Goal: Control of pain at or below patient's documented comfort goal Outcome: Progressing as expected Goal: Reduction in pain sensation Outcome: Progressing as expected Problem: Discharge Planning Goal: Adequate for discharge Outcome: Progressing as expected Goal: Effective communication Outcome: Progressing as expected DIE [facility] 2024-02-17 01:18:16 Problem: Pain Goal: Control of pain at or below patient's documented comfort goal Outcome: Progressing as expected Goal: Reduction in pain sensation Outcome: Progressing as expected Problem: Discharge Planning Goal: Adequate for discharge Outcome: Progressing as expected Goal: Effective communication Outcome: Progressing as expected [facility] 2024-02-16 11:24:40 Problem: Pain Goal: Control of pain at or below patient's documented comfort goal Outcome: Progressing as expected Goal: Reduction in pain sensation Outcome: Progressing as expected Problem: Discharge Planning Goal: Adequate for discharge Outcome: Progressing as expected Goal: Effective communication Outcome: Progressing as expected [facility] 2024-01-03 15:44:48 Requested medical records faxed in from [facility]. Can be viewed in patients chart under media tab, titled external correspondence records, dated 01/03/24. [facility] Faviola Pelletier [facility]"
--- NOTE | 2024-06-18 04:43 | P.HP ---
Certification for Inpatient Patient admitted to: Observation Practitioner: I am a practitioner with admitting privileges, knowledge of patient current condition, hospital course, and medical plan of care. Services: Services provided to patient in accordance with Admission requirements found in Title 42 Section 412.3 of the Code of Federal Regulations Patient History Date of Service: 06/18/24 Reason for admission: Acute appendicitis History of Present Illness: 68-year-old male with a past medical history of hypertension, hyperlipidemia, pulmonary fibrosis, asthma, presented to [facility] emergency room for abdominal pain. He was noted to have acute appendicitis. He is a patient of Dr. Bland, he has a prior history of acute appendicitis, in March he was treated with IV antibiotics, he did not have surgery at that time, he was pending cardiac clearance. He reports being evaluated by cardiology, having previous stress test. He reports left shoulder pain that is chronic., He takes topical analgesics. Plan to admit for acute appendicitis with Dr. Bland to consult. Allergies dobutamine Adverse Reaction (Severe, Verified 06/18/24 04:48) Shortness of breath Home Medications: Aspirin [Aspirin EC] 81 mg PO DAILY 06/18/24 Atorvastatin Calcium [Lipitor] 80 mg PO DAILY 06/18/24 Diclofenac Potassium 50 mg PO BID 06/18/24 Empagliflozin [Jardiance] 10 mg PO DAILY 06/18/24 Fluticasone/Umeclidin/Vilanter [Trelegy Ellipta 200-62.5-25] 1 puff IH DAILY 06/18/24 Isosorbide Mononitrate [Isosorbide Mononitrate ER] 30 mg PO DAILY 06/18/24 Metformin HCl 1,000 mg PO SEECOM 06/18/24 - Past Medical/Surgical History -: Asthma -: Pulmonary fibrosis -: Hypertension -: Diabetes -: Cirrhosis -: Hyperlipidemia - Social History Smoking Status: Never smoker Alcohol use: No Caffeine use: Yes Place of Residence: Home Review of Systems Per HPI Physical Examination - Physical Exam General: Alert, In no apparent distress, Oriented x3 HEENT: Atraumatic, Normocephalic Neck: 2+ carotid pulse no bruit, JVD not distended Respiratory: Normal air movement, Other (Equal unlabored) Cardiovascular: Normal pulses, Regular rate/rhythm Capillary refill: <2 Seconds Gastrointestinal: Normal bowel sounds, Other (Right lower quadrant tender), Rebound Musculoskeletal: No clubbing, No swelling Integumentary: No significant lesion, No tenderness/swelling Neurological: Normal speech, Normal strength at 5/5 x4 extr Assessment and Plan - Problems (Diagnosis) (1) Acute appendicitis Current Visit: Yes Status: Acute Qualifiers: Acute appendicitis type: unspecified acute appendicitis type Qualified Code(s): K35.80 - Unspecified acute appendicitis (2) Abdominal pain Current Visit: Yes Status: Acute Qualifiers: Abdominal location: right upper quadrant Qualified Code(s): R10.11 - Right upper quadrant pain (3) Right lower quadrant abdominal pain Current Visit: Yes Status: Acute (4) Diabetes type 2, controlled Current Visit: Yes Status: Chronic - Plan Admit to Jose MariaDr. Bland consult for surgery N.p.o. IV antibiotics, IV fluids, as needed analgesia as needed stool softeners after surgery Accu-Cheks ACHS, resume after surgery as needed nebs, resume home meds Discharge Plan: Home - Advance Directives Does patient have a Living Will: No Does patient have a Durable POA for Healthcare: No - Code Status/Comfort Care Code Status: Full Code Critical Care: No Time Spent Managing Pts Care (In Minutes): 55
[2024-06-18] MEDS ORDERED: ONDANSETRON 4 MG/2 ML VIAL IV PRN (05:01)
[2024-06-18 05:02] VITALS: BMI 27.9
[2024-06-18 05:24] LABS: Urine Bilirubin NEGATIVE (Negative); Urine Blood Negative (Negative); Urine Clarity Clear (Clear); Urine Color Light-Yellow (Yellow); Urine Glucose 4+ (Over) (Negative); Urine Ketones NEGATIVE (Negative); Urine Microscopic Reflex YN NO UMIC; Urine Nitrite NEGATIVE (Negative); Urine Protein NEGATIVE (Negative); Urine Urobilinogen Normal (Normal)
[2024-06-18 05:30] LABS: Specific Gravity > 1.030 (1.005-1.030)
[2024-06-18] MEDS: NA CHLORIDE 0.9% 1,000 ML IV SCH (05:42)
[2024-06-18] MEDS: MORPHINE 4 MG/ML SYR IV PRN (05:50)
[2024-06-18 06:24] LABS: Absolute Eosinophils 0.1 K/uL (0-0.5); Absolute Lymphocytes (CBC) 0.7 K/uL (0.7-4.9); Basophils % 0.3 % (0-1.3); Eosinophils % 1.1 % (0-4.4); Hemoglobin 13.9 g/dL (13.6-17.9); Lymphocytes % 8.3 % (15.3-44.8); MCH 31.6 pg (27.0-35.0); MCHC 33.8 g/dL (32.0-36.0); MCV 93.3 fL (80-100); MPV 8.7 fL (7.6-11.3); Monocytes % 11.8 % (3.3-12.3); Neutrophils % 78.5 % (41.7-73.7); Platelets 96 thou/uL (152-406); RBC Red Blood Cell Count 4.39 M/uL (4.33-5.43); Red Cell Distribution Width 13.9 % (12.1-15.2)
[2024-06-18 06:31] LABS: PT Prothrombin Time 12.8 SECONDS (9.4-12.5); Protime INR 1.15
[2024-06-18 06:41] LABS: Magnesium 1.7 mg/dL (1.6-2.4)
[2024-06-18] MEDS ORDERED: ALBUTEROL 2.5 MG/3 ML NEB SOL NEB PRN (06:56)
[2024-06-18] MEDS ORDERED: IPRATROPIUM BROM 0.5MG/2.5ML NEB PRN (06:56)
[2024-06-18 07:04] LABS: Blood Morphology Comment NOT SEEN (NOT SEEN); Platelet Estimate DECR; White Blood Cell Scan OK (OK)
[2024-06-18] MEDS: MAGNESIUM SULFATE 1 gm IVPB 1 GM/100 ML BAG IV ONE (08:03)
[2024-06-18] MEDS: PIPER TAZO 3.375 GM in NA CHLORIDE 0.9% 100 ML IV SCH (08:03)
[2024-06-18] MEDS ORDERED: PIPER TAZO 3.375 GM in NA CHLORIDE 0.9% 100 ML IV ONE (09:00)
[2024-06-18] MEDS: INSULIN REGULAR (HUMAN) 100 UNIT/ML SQ SCH (12:00)
[2024-06-18] MEDS ORDERED: FENTANYL CITR 100 MCG/2 ML ONE (12:33)
[2024-06-18] MEDS ORDERED: KETOROLAC 30 MG/ML INJ ONE (12:33)
[2024-06-18] MEDS ORDERED: propofoL 200 MG/20 ML VIAL IV ONE (12:33)
[2024-06-18] MEDS ORDERED: MIDAZOLAM HCL 2 MG/2 ML INJ ONE (12:33)
[2024-06-18] MEDS ORDERED: ROCURONIUM 50 MG/5 ML VIAL IV ONE (12:33)
[2024-06-18] MEDS ORDERED: LIDOCAINE 2% MPF 5 ML VIAL ONE (12:33)
[2024-06-18] MEDS ORDERED: ONDANSETRON 4 MG/2 ML VIAL ONE (12:33)
[2024-06-18] MEDS ORDERED: dexAMETHasone 10 MG/ML VIAL ONE (12:33)
[2024-06-18] MEDS ORDERED: GLYCOPYRROLATE 0.2 MG/ML SYR ONE (13:59)
[2024-06-18] MEDS ORDERED: NEOSTIGMINE 1 MG/ML -10 ML VIAL ONE (13:59)
--- NOTE | 2024-06-18 14:07 | P.BOP ---
Preoperative diagnosis: acute appendicitis, acute abdominal pain, on anticoagulation Postoperative diagnosis: suppurative acute appendicitis with peritonitis, umbilical hernia Primary procedure: 1. Laparoscopic appendectomy Secondary procedure: 2. Open repair of umbilical hernia Estimated blood loss: <10cc Specimen: qasim Findings: acute suppurative appendix with peritonitis, fibrin, umbiical hernia Anesthesia: General Complications: None Drain(s): SULEMA drain Transferred to: Recovery Room Condition: Good
[2024-06-18] MEDS: SUCCINYLCHOLINE 20 MG/ML (10 ML) IV ONE (15:05)
--- NOTE | 2024-06-18 17:09 | CON ---
Date of Consultation: 06/18/2024 Diagnosis: Acute appendicitis. History Of Present Illness: This is a case of a 68-year-old patient who came to our hospital with ac andrew appendicitis. The story is that few weeks ago he showed up at [facility] ER, evaluated by their physic ians, and diagnosed with acute appendicitis, clinical and CAT scan, but they decided to treat him wit h the p.o. antibiotics, sent home on same day. A few weeks later, he came to my office with similar symptoms on and off. The day he was in my office, he was completely negative. We discussed his find ings and since he is having these symptoms, we recommended the patient to have appendectomy done. He was due for a colonoscopy. So in order to trying to verify if there is anything else causing this a ppendix, a colonoscopy was scheduled with a uniform room attendant, but last night, the pain came once ag ain. He came to the [facility] and I advised him not to leave this time, to come and transfer t o this institution or to whatever he prefer, to be for appendectomy. He stated that he discussed the case with the [facility] doctors initially and they thought that they can treat this appendicitis conserva tively with antibiotics, but it has been nothing like on and off pain since a month ago. He was tryi ng to see if he can get enough time well to have his colonoscopy, but eventually it just did not work that way. So he is going to have to have a colonoscopy after the appendix. They are coming from [facility] last night, so I asked them to, if possible, transfer the patient to this institution since they do not feel comfortable sending him home and I fully agree with them. Allergies: DOBUTAMINE. Medications: Include aspirin, metformin, isosorbide, Lipitor, and also Plavix which he took last nig ht. Past Medical History: Include asthma, pulmonary fibrosis, hypertension, diabetes, cirrhosis, hyperli pidemia. Social History: He does not smoke. He drinks alcohol occasionally. Family History: Noncontributory. Review of Systems: Nausea, vomiting, abdominal pain, right lower quadrant abdominal pain. Physical Examination: Vital Signs: Reviewed. General: The patient is awake, alert. HEENT: The pupils are equal and reactive. Anicteric. Neck: Supple. Chest: Clear. Abdomen: Right lower quadrant tenderness with guarding and rebound. Extremities: Good capillary refill. Rectal: Deferred. Genitalia: Deferred. Neurological: The patient is oriented x3. Laboratory Data: WBC count of 8.9 with hemoglobin of 13.9, INR is 1.15, and chloride is 108, glucose 166. CAT scan of the abdomen and pelvis shows ileitis and also an appendicitis. Assessment: 68-year-old patient, interesting case, he was seen at another institution before with ac andrew appendicitis, but they decided to treat him conservatively. The pain has just gotten worse to th e point right now that we have somebody with acute appendicitis again and CAT scan proved that. We a dvised him last time to get the appendix out, but at the same time he had some cardiac issues, we rohan e trying to figure out and also see if the colonoscopy could be done since he was already sent home [facility]. The plan did not work. He came last night once again with abdominal pain. At this time, I asked him to please let us at least do a diagnostic laparoscopy. The etiology of this appendicitis may be multiple, but we know that it at least shows some inflammation and if we continue this, he ma y perf and developed into more chronic problems. He understands this will not cancel his colonoscopy . It just postponed. The etiology of that needs to be found. Sometimes it is due to inflammatory p rocess, autoimmune, sometimes infectious. At this moment, we might just be able to remove the append ix. We of this, but in the next few weeks with the help of his uniform room attendant, we pilo uld look for other reasons that maybe include neoplasm. He understood. The patient was emergently booked in OR. CHICHI/GEORGES Voice ID: [id number] Report ID: [id number]
--- NOTE | 2024-06-18 17:26 | P.PN ---
Date of Service: 06/18/24 patient seen on rounds this morning pain improved, but still persistent in RLQ no nausea/vomiting pain medication helping NPO, IVF continue antibiotics Dr. Bland consulted. 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
[2024-06-18 22:39] VITALS: O2SAT 93
[2024-06-19 04:58] LABS: Absolute Lymphocytes (CBC) 1.1 K/uL (0.7-4.9); Absolute Monocytes 0.8 K/uL (0.1-1.3); Absolute Neutrophil 5.8 K/uL (1.8-8.0); Basophils % 0.2 % (0-1.3); Eosinophils % 0.1 % (0-4.4); Hematocrit 36.6 % (39.6-49.0); Hemoglobin 12.6 g/dL (13.6-17.9); Lymphocytes % 14.4 % (15.3-44.8); MCHC 34.4 g/dL (32.0-36.0); MCV 93.1 fL (80-100); MPV 8.3 fL (7.6-11.3); Monocytes % 9.8 % (3.3-12.3); Neutrophils % 75.5 % (41.7-73.7); Platelets 107 thou/uL (152-406); RBC Red Blood Cell Count 3.93 M/uL (4.33-5.43); Red Cell Distribution Width 14.3 % (12.1-15.2)
[2024-06-19 05:00] LABS: PT Prothrombin Time 14.4 SECONDS (9.4-12.5); Protime INR 1.3
[2024-06-19 05:10] LABS: Anion Gap 9.6 mEq/L (5.0-15.0); Magnesium 1.7 mg/dL (1.6-2.4); Potassium 3.6 mEq/L (3.5-5.1)
[2024-06-19] MEDS: MAGNESIUM SULFATE 1 gm IVPB 1 GM/100 ML BAG IV ONE (05:36)
--- NOTE | 2024-06-19 06:08 | OP ---
Surgeon: Garcia lBand MD Diagnoses: Acute appendicitis, acute abdominal pain, the patient on anticoagulation, cardiac disease , diabetes. Postoperative Diagnosis: Suppurative acute appendicitis with peritonitis and umbilical hernia Procedure: 1.Laparoscopic appendectomy. 2.Open repair of umbilical hernia. Estimated Blood Loss: Less than 10 mL. Specimen: Appendix. Finding: Acute suppurative appendicitis with peritonitis, fibrin present around the appendix, periap pendiceal inflammation present, and also patient has an umbilical hernia with omental adhesions to it . Anesthesia: General plus local. Drains: SULEMA #10. Indications: This is a case of a 68-year-old patient comes to us with acute abdominal pain, came to the [facility] a few hours ago before the admission with right lower quadrant pain. Interesting ly enough, this patient is known by us. Apparently, a few weeks ago, the patient went to the ER in [facility] in [place], diagnosed with acute appendicitis clinically and radiologically, but it was decided to treat the patient with antibiotics. After that, patient in the last few weeks has been having epi sodes on and off, came to my office a few days ago. We advised him to have the appendix removed. e colonoscopy was pending, but he could not just get better. The pain when he came to the office was none. Got the pain once again, and I advised him not to wait any more and just get the surgery done as soon as possible. The benefits, alternatives, and risks of laparoscopic, possible open appendect rose fully explained, which include, but not limited to infection, bleeding, damage to adjacent struct ures, anesthesia complication, abscess, AK, and even . He also understands this may not relieve the symptoms. He might need more than one surgical intervention. He understood, signed consent. Description Of Procedure: The patient was brought to the operating room, placed in supine position. Anesthesia was done without complication. Abdominal area was prepped and draped in sterile fashion. Local anesthesia was applied after time-out. The patient has an umbilical hernia and we had to go through that opening to be able to continue with surgery, and in my way out, we were just going to fi x the hernia. So, we made an incision and immediately we noticed hernia sac, omental incarcerated on to that area. We carefully reduced by gentle traction. The rest of the omentum that was coming thr ough was suture ligated with 0 chromic and silk. The rest of the omentum was allowed to retract into the abdominal cavity after fully inspecting and making sure there was no bleeding. The area was ins pected. Fascial edges were cleaned. At that moment, I proceeded to put Vicryl #1 in a rrvnwu-dy-mcs ht fashion multiple times to approximate the hernia defects, but not enough to close it completely si nce we have to put a Maximus trocar through it. Once we put the Maximus trocar through that area, I pr oceeded then to obtain pneumoperitoneum. At that moment, I noticed on the right lower quadrant the p atient to have acute appendicitis. There was suppurative appendicitis. There was fibrin present. S ome adhesions looked like chronic inflammation probably from the previous episode several weeks ago. To be able to do this, we had to open the LigaSure. There were many adhesions in that area. We had to mobilize the appendix and part of the cecum to be able to get this appendix out. The mesoappendi x was transected with the help of LigaSure until we have the base of the appendix. The base of the a ppendix seemed to be spared from the disease. So, we transected the base of appendix with Endo-BAUDILIO 4 5 mm nonvascular. The mesoappendix was re-ligated with the ligature. The appendix removed from abdo estrada cavity using an EndoCatch through the umbilical incision. Due to the inflammation and infectio n in that area, I profusely irrigated that area. After that, making sure hemostasis was completely o btained, I proceeded to leave a SULEMA drain in that region exiting through one of the trocar sites. The SULEMA drain was secured in place with the help of a 3-0 nylon. After that, I proceeded to inspect the area of adhesions, no bleeding. Mesoappendix was also checked with no bleeding. At that moment, I p roceeded to remove the trocars under direct vision, deflated pneumoperitoneum, closed the fascia and umbilical hernia with #1 Vicryl in a [id number]-vu-pwlxz fashion multiple times. Irrigation was done at subcutaneous tissue and 3-0 chromic was used to further close subcutaneous tissue and the skin with s taples. SULEMA was connected to bulb suction. It was secured in place with 2-0 nylon. Patient tolerate d the procedure well. Patient was sent to Recovery in stable condition. Patient will remain in the hospital overnight for IV antibiotics. HM/MODL Voice ID: [id number] Report ID: [id number]
[2024-06-19] MEDS: POTASSIUM CL SA 10 MEQ TAB PO ONE (08:47)
--- NOTE | 2024-06-19 11:01 | P.DS ---
Admission Date: 06/18/24 Discharge Date: 06/19/24 Disposition: ROUTINE DISCHARGE Discharge Condition: FAIR Reason for Admission: Acute appendicitis - Problems (1) Acute appendicitis Current Visit: Yes Status: Acute Qualifiers: Acute appendicitis type: unspecified acute appendicitis type Qualified Code(s): K35.80 - Unspecified acute appendicitis (2) Diabetes type 2, controlled Current Visit: Yes Status: Chronic Brief History of Present Illness: Patient presented with abdominal pain from [place] ER secondary to acute appendicitis. Hospital Course: He was evaluated by Dr. Bland, general surgeon, and underwent laparoscopic appendectomy and open umbilical hernia repair on 06/18. Patient did well post-operatively, was feeling better, pain improved, and ambulatory. He tolerated diet. Vitals are stable for discharge. Patient discharged to follow-up with Dr. Bland within 1 week He is prescribed oral ciprofloxacin and Flagyl. Vital Signs/Physical Exam: Temp Pulse Resp BP Pulse Ox 97.8 F 60 17 127/58 L 95 06/19/24 08:00 06/19/24 08:00 06/19/24 08:00 06/19/24 08:00 06/19/24 08:00 General: Alert, In no apparent distress, Oriented x3 HEENT: Mucous membr. moist/pink Neck: JVD not distended Respiratory: Clear to auscultation bilaterally, Normal air movement Cardiovascular: No edema, Regular rate/rhythm, No murmurs Gastrointestinal: Normal bowel sounds, Soft and benign, Non-distended, Other (SULEMA drain in place.) Integumentary: No rashes Neurological: Normal strength at 5/5 x4 extr Laboratory Data at Discharge: WBC 7.70 thou/uL (4.3-10.9) 06/19/24 04:30 Hgb 12.6 g/dL (13.6-17.9) L D 06/19/24 04:30 Hct 36.6 % (39.6-49.0) L 06/19/24 04:30 Plt Count 107 thou/uL (152-406) L 06/19/24 04:30 PT 14.4 SECONDS (9.4-12.5) H 06/19/24 04:30 INR 1.30 06/19/24 04:30 Sodium 138 mEq/L (136-145) 06/19/24 04:30 Potassium 3.6 mEq/L (3.5-5.1) 06/19/24 04:30 BUN 13 mg/dL (7-18) 06/19/24 04:30 Creatinine 0.56 mg/dL (0.70-1.30) L 06/19/24 04:30 Glucose 118 mg/dL (74-106) H 06/19/24 04:30 Magnesium 1.7 mg/dL (1.6-2.4) 06/19/24 04:30 Home Medications: Aspirin [Aspirin EC] 81 mg PO DAILY 06/18/24 Atorvastatin Calcium [Lipitor] 80 mg PO DAILY 06/18/24 Diclofenac Potassium 50 mg PO BID 06/18/24 Empagliflozin [Jardiance] 10 mg PO DAILY 06/18/24 Fluticasone/Umeclidin/Vilanter [Trelegy Ellipta 200-62.5-25] 1 puff IH DAILY 06/18/24 Isosorbide Mononitrate [Isosorbide Mononitrate ER] 30 mg PO DAILY 06/18/24 Metformin HCl 1,000 mg PO SEECOM 06/18/24 Ciprofloxacin HCl [Cipro] 500 mg PO BID #14 tab 06/19/24 Hydrocodone 7.5/APAP 325 [[place] 7.5/325 mg] 1 tab PO Q6H PRN #20 tab 06/19/24 metroNIDAZOLE [Flagyl] 500 mg PO Q8H #21 tab 06/19/24 New Medications: Ciprofloxacin HCl [Cipro] 500 mg PO BID #14 tab metroNIDAZOLE [Flagyl] 500 mg PO Q8H #21 tab Hydrocodone 7.5/APAP 325 [[place] 7.5/325 mg] 1 tab PO Q6H PRN #20 tab PRN Reason: Pain Physician Discharge Instructions: Physician discharge instructions: Patient presented with abdominal pain from [place] ER secondary to acute appendicitis. He was evaluated by Dr. Bland, general surgeon, and underwent laparoscopic appendectomy on 06/18. Patient did well post-operatively, was feeling better, pain improving, and was deemed stable for discharge. Follow up with Dr. Bland in office in ~1 week for further management. Medications: norco 5/325? Follow up: PCP 3-[address] Bland in office in ~1 week Please call to schedule / confirm appointments Recommend bland soft food diet for next 2-3 days then can slowly advance to regular diet as tolerated. Avoid foods high in fat. No heavy lifting > 10 lbs for 4-6 weeks or otherwise instructed by Dr. Bland Do no submerge wound underwater. Okay to shower with running water. Diet: AHA Activity: Ad mitzi Followup: Garcia Bland MD [ACTIVE - CAN ADMIT] - 1-2 Weeks Time spent managing pt's care (in minutes): 28
[2024-06-19 13:02] VITALS: BP 115/57; TEMP 96.8
[2024-06-19] MEDS: ACETAMINOPHEN 325 MG TABLET PO ONE (13:37)
--- NOTE | 2024-06-19 17:00 | EKG ---
Test Date: 2024-06-18 Test Time: 10:57:35 Dye Colorist Formulator: PREO MEASUREMENT RESULTS: Intervals: Rate: 73 AL: 168 QRSD: 98 QT: 382 QTc: 420 Sherrill: P: 30 AL: 168 QRS: 20 T: -4 INTERPRETIVE STATEMENTS: Normal sinus rhythm Cannot rule out Anterior infarct, age undetermined Abnormal ECG No previous ECG available for comparison Electronically Signed On 06-19-24 16:55:21 CDT by Stewart Lopez
== END 2024-06-19 13:35 | disposition home or self-care (01) | DRG 399 ==
LOC: 2ND 04:30 → OBSVTOIN 04:30 → INTOOBSV 04:30
PROVIDERS: ADMIT Hospitalist; ATTEND Internal Medicine
PROC: 0WQF0ZZ Repair Abdominal Wall, Open Approach (ICD-10-PCS; 2024-06-18)
PROC: 0DTJ4ZZ Resection of Appendix, Percutaneous Endoscopic Approach (ICD-10-PCS; principal; 2024-06-18 12:00)
DX: K35.33 Acute appendicitis with perforation, localized peritonitis, and gangrene, with abscess (principal); K42.9 Umbilical hernia without obstruction or gangrene; I10 Essential (primary) hypertension; E78.5 Hyperlipidemia, unspecified; E11.9 Type 2 diabetes mellitus without complications; Z88.8 Allergy status to other drugs, medicaments and biological substances; Z79.82 Long term (current) use of aspirin; Z79.84 Long term (current) use of oral hypoglycemic drugs; Z79.02 Long term (current) use of antithrombotics/antiplatelets; Z79.899 Other long term (current) drug therapy
CPT/HCPCS: 36415; 80048; 81003; 82947; 83735; 85025; 85610; 88302; 88304; 93005; 94010; G0378; J1100; J2001; J2250; J2405; J2543; J2704; J2710; J3010; J3475; J7030